=== PATIENT | male | born 1980 | race Caucasian/White ===

== ENCOUNTER 2022-06-04 19:31 | Inpatient (IN) | payer OTHER, SELFPAY ==
--- NOTE | ~2022-06-04 | XR_ITS ---
EXAMINATION: XR FOOT, RIGHT CLINICAL INFORMATION: Painful, swollen toe COMPARISON: None TECHNIQUE: AP, lateral, and oblique views of the right foot. FINDINGS: There is soft tissue swelling in the forefoot, especially around the third toe. There is an avulsion fracture involving the distal proximal phalanx which on the lateral view can be seen displaced significantly dorsally. There is cortical disruption reduction with indistinctness seen in the middle phalanx of the third digit proximally suggestive of osteomyelitis. In addition, in the first metatarsal head, there is a probable nondisplaced fracture present. XR/XR foot RT 2V IMPRESSION: Fractures involving the proximal phalanx of the third toe and the first metatarsal head with question of osteomyelitis the proximal middle phalanx. MRI may be useful for further evaluation. This critical result was discussed with Dr. Lowe at 9:30 PM on the day of the exam and it was ascertained that the content and urgency of the report was understood at the time of direct communication.
--- NOTE | ~2022-06-04 | MR_ITS ---
EXAMINATION: MR FOOT WITHOUT AND WITH CONTRAST, RIGHT CLINICAL INFORMATION: Concern for osteomyelitis. Fracture. COMPARISON: Right foot radiographs dated 06/04/2022. TECHNIQUE: Multisequence MR imaging of the right foot was obtained before and after the IV administration of 8.5 mL Gadavist contrast on a high-field strength scanner. FINDINGS: Attenuation and erosion to the proximal aspect of the third middle phalanx with diffusely increased T2 and decreased T1 signal. Attenuation and erosion at the distal aspect of the third proximal phalanx with increased T2 and decreased T1 signal. There is postcontrast enhancement within the marrow. Moderate proximal interphalangeal joint effusion with circumferential soft tissue edema. Findings are concerning for septic arthritis with osteomyelitis/erosions. Marrow edema with increased T2 and decreased T1 signal as well as postcontrast enhancement within the plantar aspect of the first metatarsal head. Findings could represent a stress reaction or osseous contusion. Osteomyelitis is thought less likely as there is no adjacent wound. The visualized flexor and extensor tendons are grossly intact. The Lisfranc ligament is intact. Dorsal subcutaneous edema. No dorsal subcutaneous abscess. MR/MR foot RT wo/w con IMPRESSION: Findings consistent with acute septic arthritis at the third proximal interphalangeal joint with osseous erosions and a moderate joint effusion. Circumferential soft tissue edema. Marrow edema within the first metatarsal head which could represent an osseous contusion or stress reaction. Osteomyelitis is thought less likely. Prominent dorsal subcutaneous edema.
[2022-06-04 19:37] VITALS: BP 160/95; PULSE 95; O2SAT 96
[2022-06-04 21:06] VITALS: BP 163/88; PULSE 84; RESP 18; TEMP 37.2; O2SAT 100; BMI 23.7
[2022-06-04 21:16] LABS: MANUAL DIFF FLAG NO
[2022-06-04 21:17] LABS: Basophils Absolute Auto 0.1 X10*3/uL (0.0-0.2); Eosinophils Absolute Auto 0.1 X10*3/uL (0.0-0.4); Eosinophils Percent Auto 1.5 % (0-4); Hematocrit 38.7 % (42.0-52.0); Hemoglobin 13.6 g/dl (14.0-18.0); Imm Gran Abs Auto 0.01 X10*3/uL (0.00-0.03); Imm Gran Pct Auto 0.1 % (0.0-0.4); Lymphocytes Absolute Auto 4.1 X10*3/uL (1.2-4.9); Lymphocytes Percent Auto 50.2 % (20-40); Mean Corpuscular HGB Conc 35.1 g/dl (31.0-36.0); Mean Corpuscular Hemoglobin 34.6 pg (27.0-33.0); Mean Corpuscular Volume 98.5 fL (80.0-98.0); Mean Platelet Volume 8.1 fL (9.4-12.4); Monocytes Absolute Auto 0.4 X10*3/uL (0.1-1.2); Monocytes Percent Auto 4.3 % (2-11); Neutrophils Absolute Auto 3.5 x10*3/uL (2.0-8.3); Neutrophils Percent Auto 42.9 % (45-73); Platelet Count 230 X10*3/uL (160-400); Red Blood Count 3.93 X10*6/uL (4.60-5.80); Red Cell Distribution Width 13.9 % (11.0-16.0); White Blood Count 8.1 X10*3/uL (4.8-10.8)
[2022-06-04 21:30] LABS: COVID-19 Test Negative (Negative); IDNOW Serial# 16C4AD1C
[2022-06-04 21:41] LABS: Alanine Aminotransferase 42 U/L (0-40); Albumin Level 4.3 g/dL (3.5-5.0); Alkaline Phosphatase 153 U/L (39-117); Anion Gap 16 (12-20); Aspartate Amino Transferase 55 U/L (5-37); Bilirubin Direct 0.3 mg/dL (0.0-0.5); Bilirubin Total 0.6 mg/dL (0.0-1.0); Blood Urea Nitrogen 7 mg/dL (9-16); Calcium 9.3 mg/dL (8.4-10.2); Carbon Dioxide 31 mmol/L (22-29); Chloride 104 mmol/L (96-108); Creatinine Clr Calc Pharmacy 152.1; Estimated Glomerular Filt Rate > 60; Ethanol 374 mg/dL; Glucose Random 71 mg/dL (60-115); Lipase 23 U/L (8-78); Sodium 148 mmol/L (135-145); Total Protein 7.5 g/dL (6.5-8.0)
--- NOTE | 2022-06-04 22:30 | ED.GENADULT ---
HPI - General Adult General Chief complaint: General Medical Stated complaint: ETOH Time Seen by Provider: 06/04/22 22:30 History of Present Illness HPI narrative: Patient complains of right foot pain for many weeks that has gotten worse over the past week and a half with a watery yellow discharge from the wound increased pain increased redness, denies fever denies chills denies vomiting Patient is a daily drinker, last drink was today, he has had withdrawal symptoms from alcohol in the past Related Data Allergies Allergy/AdvReac Type Severity Reaction Status Date / Time bee pollen [bee stings] Allergy Unknown Verified 06/04/22 19:39 Review of Systems Review of Systems: Positive for right foot pain and wound Negatives no fever no chills no dizziness no weakness no fainting no feeling faint no headache no neck pain no chest pain no abdominal pain no nausea vomiting or diarrhea no dysuria Yes all other systems are reviewed and are negative [facility] Past Medical History [facility] Narrative: Patient is regular daily user of EtOH Source: nursing notes reviewed Social History Social History Advance Directives: No Advance Directives Information Provided: No Physical Exam ED Vital Signs: Vital Signs - 24 hr 06/04/22 21:06 Temperature 98.9 F Pulse Rate 84 Respiratory Rate 18 Blood Pressure 163/88 H Pulse Oximetry 100 Oxygen Delivery Method Room Air BMI result Body Mass Index 23.7 General appearance no acute distress Head is normocephalic atraumatic Eyes pupils equal round reactive to light and extraocular motions are intact, anicteric no pallor Pharynx mucous membranes moist Neck is supple Chest clear to auscultation bilateral Heart no murmur auscultated Abdomen soft nontender Extremities the right foot at the distal dorsal foot at the base of the 3rd toe there is redness tenderness there is a wound on top of the for toe there is discharge coming out between the toes, skin is red and macerated Other extremities are normal Neuro motor is 5/5 x4, sensation intact symmetrical, cranial nerves 2-12 intact as tested Course Course Course Narrative: X-ray of the right foot showed cortical disruption in the mid phalanx of the right 3rd toe consistent with osteomyelitis Potassium was noted to be 3.0 EKG did not show signs of hypokalemia, normal sinus rhythm no acute ST changes, CA interval was normal, no acute T-wave changes, no U waves seen Case was discussed with attending ER Dr. Lowe and patient was admitted for osteo myelitis of the right foot after discussion with hospitalist He is started on IV antibiotics and admitted Medical Decision Making Lab Data Lab results reviewed: Yes I reviewed the patient's lab results. Result diagrams: 06/04/22 21:12 06/04/22 21:11 Labs: Lab Results 06/04/22 06/04/22 06/04/22 Range/Units 21:09 21:11 21:12 WBC 8.1 (4.8-10.8) X10*3/uL RBC 3.93 L (4.60-5.80) X10*6/uL Hgb 13.6 L (14.0-18.0) g/dl Hct 38.7 L (42.0-52.0) % MCV 98.5 H (80.0-98.0) fL MCH 34.6 H (27.0-33.0) pg MCHC 35.1 (31.0-36.0) g/dl RDW 13.9 (11.0-16.0) % Plt Count 230 (160-400) X10*3/uL MPV 8.1 L (9.4-12.4) fL Immature Gran % (Auto) 0.1 (0.0-0.4) % Neut % (Auto) 42.9 L (45-73) % Lymph % (Auto) 50.2 H (20-40) % [place] % (Auto) 4.3 (2-11) % Eos % (Auto) 1.5 (0-4) % Baso % (Auto) 1.0 (0-2) % Lymph # (Auto) 4.1 (1.2-4.9) X10*3/uL [place] # (Auto) 0.4 (0.1-1.2) X10*3/uL Eos # (Auto) 0.1 (0.0-0.4) X10*3/uL Baso # (Auto) 0.1 (0.0-0.2) X10*3/uL Abs Immat Gran (auto) 0.01 (0.00-0.03) X10*3/uL Absolute Neuts (auto) 3.5 (2.0-8.3) x10*3/uL Absolute Nucleated RBC 0.000 (0.0-0.012) X10*3/uL Nucleated RBC % (auto) 0.0 (0.0-0.2) /100WBC Sodium 148 H (135-145) mmol/L Potassium 3.0 L (3.3-5.1) mmol/L Chloride 104 (96-108) mmol/L Carbon Dioxide 31 H (22-29) mmol/L Anion Gap 16 (12-20) BUN 7 L (9-16) mg/dL Creatinine 0.70 (0.5-1.4) mg/dL Estim Creat Clear Calc 152.1 Estimated GFR > 60 Random Glucose 71 (60-115) mg/dL Calcium 9.3 (8.4-10.2) mg/dL Total Bilirubin 0.6 (0.0-1.0) mg/dL Direct Bilirubin 0.3 (0.0-0.5) mg/dL AST 55 H (5-37) U/L ALT 42 H (0-40) U/L Alkaline Phosphatase 153 H (39-117) U/L Total Protein 7.5 (6.5-8.0) g/dL Albumin 4.3 (3.5-5.0) g/dL Lipase 23 (8-78) U/L Ethyl Alcohol 374 H* mg/dL COVID-19 ([facility]) Negative (Negative) COVID-19 Clin Com See Note Discharge Plan Discharge Clinical Impression: Osteomyelitis, EtOH dependence Patient Disposition: Admitted As Inpatient
--- NOTE | 2022-06-04 22:32 | ECG_ITS ---
Test Reason : HYPOKALEMIA Blood Pressure : / mmHG Vent. Rate : 070 BPM Atrial Rate : 070 BPM P-R Int : 170 ms QRS Dur : 106 ms QT Int : 404 ms P-R-T Axes : 044 058 060 degrees QTc Int : 436 ms Normal sinus rhythm ST elevation in Inferior leads Abnormal ECG No previous ECGs available Referred By: Wade Paniagua Electronically Signed By:LATRICE ULLOA
--- NOTE | 2022-06-04 23:14 | P.HPHOSP_ITS ---
History of Present Illness Date of Service: 06/04/22 Chief Complaint: foot pain 42-year-old male with no significant past medical history except for alcohol abuse presented to the hospital today with a chief complaint of right foot pain redness and swelling. Patient reports that about a month ago had a plate fallen is the toes; since then he has been having pain but for the past 1 week he has been having worse ermelinda pain in his the toes on the right foot. Also had an ulcer on his 3rd toe. Reports serosanguineous discharge. Denies any fevers. Mentions that the pain is so bad that he could not even ambulate hence decided to come to the ER for further evaluation. Denies any illicit drug use. Reports he drinks alcohol regularly. Denies any fever chills cough or sputum production. Denies any GI symptoms. For Review of all other systems is negative except mentioned above ER course: Per ER team patient noted to have swelling of his right 2nd 3rd and 4th fingers along with erythema and tenderness. Range of motion of the toes limited secondary to the pain. Noted ulcer on the 3rd toe. X-ray showed 3rd and 4th toe metatarsal fracture/osteomyelitis. Given antibiotics; admitted for further management [facility] Medical History (Updated 06/05/22 @ 13:12 by Esha Fox MD) Foot ulcer Pertinent family history: Parents Social History Household Members: Spouse Housing: House Do you presently have visiting nurse or other home services: No Patient Tobacco Use Status: Current someday Tobacco user Tobacco use type: Cigarette Cigarette Packs Per Day: 1 Cigarettes Per Day: 20.0 Years Smoked: 30 Second Hand Smoke Exposure: Yes Substance Use Type: Marijuana service: No Current occupational status: unemployed Meds Allergies Allergy/AdvReac Type Severity Reaction Status Date / Time bee pollen [bee stings] Allergy Unknown Verified 06/04/22 19:39 Active Medications: Current Medications Vancomycin HCl 1,000 mg/ (Sodium Chloride) 270 mls @ 270 mls/hr IV ONCE ONE Stop: 06/05/22 00:00 Piperacillin Sod/Tazobactam (Sod 3.375 gm/ Sodium Chloride) 50 mls @ 100 mls/hr IV ONCE ONE Stop: 06/04/22 23:31 Vancomycin HCl 1,000 mg/ (Sodium Chloride) 270 mls @ 270 mls/hr IV Q12H [facility] Piperacillin Sod/Tazobactam (Sod 3.375 gm/ Sodium Chloride) 50 mls @ 100 mls/hr IV Q6H [facility] Pharmacy Consult (Consult Rx Vancomycin Dosing) 1 each MISCELLANE DAILY PRN PRN Reason: Consult order Pharmacy Consult (Consult Rx Vancomycin Dosing) 1 each MISCELLANE DAILY PRN PRN Reason: Consult order Home Medications Medication Instructions Recorded Confirmed Last Taken Type ibuprofen 200 mg tablet 400 mg PO Q6H PRN Pain 06/05/22 06/05/22 Unknown History Physical Exam Vital Signs and Narrative: Vital Signs: Last Vital Signs Temp 98.9 F 06/04/22 21:06 Pulse 84 06/04/22 21:06 Resp 18 06/04/22 21:06 BP 163/88 H 06/04/22 21:06 Pulse Ox 100 06/04/22 21:06 O2 Del Method 06/04/22 21:06 BMI result Body Mass Index 23.7 Gen: Appears be in no acute distress HEENT: NCAT, Moist mucosa. Pulmonary: Vesicular breath sounds, fair air entry CVS: Normal S1-S2 Abdomen: BS+, Soft, Nontender Extremities: Warm well perfused; right foot 2nd 3rd and 4th toes are tender, range of motion limited, erythema noted around the toes, ulcer noted on the 3rd toe dorsum. Neuro: Alert and awake. Results Labs CBC and Chem 7: 06/05/22 03:24 06/06/22 09:06 Labs: Laboratory Results - last 24 hr 06/04/22 06/04/22 06/04/22 21:09 21:11 21:12 MCV 98.5 H MCH 34.6 H MCHC 35.1 RDW 13.9 Plt Count 230 MPV 8.1 L Immature Gran % (Auto) 0.1 Neut % (Auto) 42.9 L Lymph % (Auto) 50.2 H [place] % (Auto) 4.3 Eos % (Auto) 1.5 Baso % (Auto) 1.0 Lymph # (Auto) 4.1 [place] # (Auto) 0.4 Eos # (Auto) 0.1 Baso # (Auto) 0.1 Abs Immat Gran (auto) 0.01 Absolute Neuts (auto) 3.5 Absolute Nucleated RBC 0.000 Nucleated RBC % (auto) 0.0 Anion Gap 16 Estim Creat Clear Calc 152.1 Estimated GFR > 60 Random Glucose 71 Calcium 9.3 Total Bilirubin 0.6 Direct Bilirubin 0.3 AST 55 H ALT 42 H Alkaline Phosphatase 153 H Total Protein 7.5 Albumin 4.3 Lipase 23 Ethyl Alcohol 374 H* COVID-19 ([facility]) Negative COVID-19 Clin Com See Note Imaging Radiologist's Impressions: Impressions Foot X-Ray 06/04/22 21:18 IMPRESSION: Fractures involving the proximal phalanx of the third toe and the first metatarsal head with question of osteomyelitis the proximal middle phalanx. MRI may be useful for further evaluation. This critical result was discussed with Dr. Lowe at 9:30 PM on the day of the exam and it was ascertained that the content and urgency of the report was understood at the time of direct communication. Assessment and Plan (1) Osteomyelitis: Status: Acute Plan 42-year-old male with no significant past medical history except for alcohol abuse presented to the hospital today with a chief complaint of right foot pain redness and swelling. Noted to have osteomyelitis/metatarsal fracture. Admitted for further management. Right 1st metatarsal osteomyelitis/right 3rd toe and 1st metatarsal head fracture: Pain control Continue IV vancomycin and Zosyn Id consult and vascular surgery consult for further recommendations Fall precautions PT/OT eventually Alcohol abuse: Monitor on CIWA protocol with Ativan. Thiamine folate and multivitamins. DVT prophylaxis: Lovenox Code status: Full code Quality Stroke Does the patient have a stroke diagnosis?: No VTE Prior VTE?: No VTE Risk Level:: Medical - moderate - high VTE Device Contraindication: Treatment Not Indicated VTE Drug Contraindication: N/A - Med Ordered
[2022-06-04] MEDS: Piperacillin Sodium/Tazobactam 3.375 GM in 0.9 % Sodium Chloride 50 ML IV (23:32)
[2022-06-04 23:46] LABS: Magnesium 1.8 mg/dL (1.6-2.6)
[2022-06-05] MEDS: LORazepam 1 MG TABLET PO ×4 (00:26→21:06)
[2022-06-05] MEDS: 0.9 % Sodium Chloride Flush 3 ML SYRINGE IVFLUSH ×3 (00:28→21:07)
[2022-06-05] MEDS: Acetaminophen 325 MG TABLET 650 MG PO (00:28)
[2022-06-05] MEDS: Enoxaparin Sodium 40 MG/0.4 ML SYRINGE SUBCUT (00:28)
[2022-06-05] MEDS: Melatonin 3 MG TABLET 6 MG PO ×2 (00:29→21:03)
[2022-06-05] MEDS: HYDROmorphone HCl 1 MG/ML SYRINGE 0.6 MG IVPUSH ×4 (00:38→21:02)
[2022-06-05 00:44] VITALS: BP 148/78; PULSE 68; RESP 18; TEMP 36.6; O2SAT 96
[2022-06-05 01:07] LABS: Lactic Acid 2.2 mmol/L (0.5-2.0)
[2022-06-05] MEDS: 0.9 % Sodium Chloride 1,000 ML 100 ML IVCONT ×2 (02:22→15:35)
[2022-06-05 02:43] LABS: Reflex Lactate? Lactic Acid Added
[2022-06-05 03:38] LABS: MANUAL DIFF FLAG NO
[2022-06-05 03:39] LABS: Basophils Absolute Auto 0.1 X10*3/uL (0.0-0.2); Eosinophils Absolute Auto 0.1 X10*3/uL (0.0-0.4); Eosinophils Percent Auto 2.5 % (0-4); Hematocrit 34.4 % (42.0-52.0); Hemoglobin 12.2 g/dl (14.0-18.0); Imm Gran Abs Auto 0.02 X10*3/uL (0.00-0.03); Imm Gran Pct Auto 0.4 % (0.0-0.4); Lymphocytes Absolute Auto 2.5 X10*3/uL (1.2-4.9); Lymphocytes Percent Auto 50.1 % (20-40); Mean Corpuscular HGB Conc 35.5 g/dl (31.0-36.0); Mean Corpuscular Volume 98.6 fL (80.0-98.0); Mean Platelet Volume 8.2 fL (9.4-12.4); Monocytes Absolute Auto 0.4 X10*3/uL (0.1-1.2); Monocytes Percent Auto 8.8 % (2-11); Neutrophils Absolute Auto 1.8 x10*3/uL (2.0-8.3); Neutrophils Percent Auto 37.2 % (45-73); Platelet Count 195 X10*3/uL (160-400); Red Blood Count 3.49 X10*6/uL (4.60-5.80); White Blood Count 4.9 X10*3/uL (4.8-10.8)
[2022-06-05 03:49] LABS: ~Lactic Acid-LAB USE ONLY 1.7 mmol/L (0.5-2.0)
[2022-06-05 03:57] LABS: Anion Gap 15 (12-20); Blood Urea Nitrogen 8 mg/dL (9-16); Calcium 8.2 mg/dL (8.4-10.2); Carbon Dioxide 28 mmol/L (22-29); Chloride 105 mmol/L (96-108); Creatinine Clr Calc Pharmacy 147.9; Estimated Glomerular Filt Rate > 60; Glucose Random 111 mg/dL (60-115); Potassium 2.8 mmol/L (3.3-5.1); Sodium 145 mmol/L (135-145)
[2022-06-05 04:40] VITALS: BP 129/79; PULSE 61; RESP 16; TEMP 36.4; O2SAT 97
--- NOTE | 2022-06-05 06:16 | PHA.PROG ---
Admission Date/Time: June 04, 2022 23:12 Indication: SKIN/SKIN STRUCTURE Weight in k.647 kg Adjusted body weight in K.599 [place] body weight in Kg: Obesity Dosing Indication % IBW: Serum Creatinine - Last 168 Hours 06/04/22 06/05/22 21:11 03:24 Creatinine 0.70 0.72 Estimated CrCl and GFR - Last 168 Hours 06/04/22 06/05/22 21:11 03:24 Estim Creat Clear Calc 152.1 147.9 Estimated GFR > 60 > 60 Vancomycin Loading Dose: 2000 MG Current Vancomycin Dosing Regimen: 1500 MG Q12H Vancomycin Monitoring using AUC goal of 400 - 600 range with trough as surrogate marker: AUC 555; TROUGH 16 Date and Time for next Vancomycin Level to be drawn: 06/06 @0900 Pharmacist Comments on Vancomycin Plan: Possible osteo, so more aggressive Vancomycin dosing will take advantage of [employer] as a clinical decision support tool that uses Bayesian modeling to calculate individual patient's pharmacokinetic parameters and forecast the patient's drug concentration time course with the target goal AUC 24 range of 400 - 600 mg/L/hr.
[2022-06-05] MEDS: Piperacillin Sodium/Tazobactam 3.375 GM in 0.9 % Sodium Chloride 50 ML IV ×3 (06:17→17:42)
[2022-06-05 08:00] VITALS: BP 133/72; PULSE 63; RESP 16; TEMP 36.6; O2SAT 94
[2022-06-05] MEDS: Multivitamin TABLET 1 TAB PO (08:18)
[2022-06-05] MEDS: Folic Acid 1 MG TABLET PO (08:19)
[2022-06-05] MEDS: Thiamine HCL 100 MG TABLET PO (08:19)
[2022-06-05] MEDS: Famotidine 20 MG TABLET PO ×2 (08:19→21:03)
--- NOTE | 2022-06-05 08:30 | PHA.MEDREC ---
Pharmacy Consult ? Medication Reconciliation Pharmacy has completed the medication reconciliation. Patient reports he was previously on trazodone for sleep but has not been the the doctors for a new prescription. Magdalena Belle, [facility]
--- NOTE | 2022-06-05 09:36 | MHC.CM.PN ---
PATIENT LIVES WITH HIS HE IS WILLING TO ASSIGN HCP AGENT AND CASE MANAGEMENT WILL ASSIST WITH COMPLETION DURING THIS STAY COVID VACCINATED X 2 WITH PFIZER SERIES. NO HISTORY OF COVID-19 NO DME OR VNA SERVICES HE DOES NOT YET HAVE A PCP BUT IS IN THE PROCESS OF SECURING ONE AT [facility] IN [place]. IF IV ABX ARE NEEDED AT TIME OF DISCHARGE, PATIENT IS AGREEABLE TO [facility] REFERRAL.
--- NOTE | 2022-06-05 09:45 | P.PNIM_ITS ---
Subjective Subjective Date of Service: 06/05/22 Interval History: f/u on osteomylitis of the left foot Interval history: pain in the foot Review of Systems no fever, pain in the foot Physical Exam Vital Signs: Vital Signs: Last Vital Signs Temp 97.8 F 06/05/22 08:00 Pulse 63 06/05/22 08:00 Resp 16 06/05/22 08:00 BP 133/72 06/05/22 08:00 Pulse Ox 94 06/05/22 08:00 O2 Del Method 06/05/22 08:00 BMI result Body Mass Index 23.7 General: AO X 3, no acute distress Resp: CTA bilateral CVS: S1,S2,RRR GI: +BS, NT, no distention Skin: No rash, ulcre of left second digit Neuro: motor grossly intact Psych: appropriate affect Objective Data Active Medications Acetaminophen (Acetaminophen 325 Mg Tablet) 650 mg PO Q6H PRN PRN Reason: Pain, Mild (Pain Scale 1-3) Last Admin: 06/05/22 00:28 Dose: 650 mg Documented By: SERA Enoxaparin Sodium (Enoxaparin Sodium 40 Mg/0.4 Ml Syringe) 40 mg SUBCUT Q24H [facility] Last Admin: 06/05/22 00:28 Dose: 40 mg Documented By: SERA Famotidine (Famotidine 20 Mg Tablet) 20 mg PO BID [facility] Last Admin: 06/05/22 08:19 Dose: 20 mg Documented By: SIM Folic Acid (Folic Acid 1 Mg Tablet) 1 mg PO DAILY NEERU Stop: 06/08/22 08:59 Last Admin: 06/05/22 08:19 Dose: 1 mg Documented By: SIM Hydromorphone HCl (Hydromorphone Hcl 1 Mg/Ml Syringe) 0.6 mg IVPUSH Q4H PRN; Protocol PRN Reason: Breakthrough Pain Last Admin: 06/05/22 06:38 Dose: 0.6 mg Documented By: JESSI Piperacillin Sod/Tazobactam (Sod 3.375 gm/ Sodium Chloride) 50 mls @ 100 mls/hr IV Q6H [facility] Last Infusion: 06/05/22 06:58 Dose: 0 mls/hr Documented By: JESSI Sodium Chloride (Ns) 1,000 mls @ 100 mls/hr IVCONT .Q10H [facility] Last Admin: 06/05/22 02:22 Dose: 100 mls/hr Documented By: SERA Vancomycin HCl 1,500 mg/ (Sodium Chloride) 500 mls @ 333.333 mls/hr IV Q12H [facility] Lorazepam (Lorazepam 1 Mg Tablet) 1 mg PO Q4H PRN PRN Reason: Breakthrough alcohol withdrawa Stop: 06/08/22 23:13 Melatonin (Melatonin 3 Mg Tablet) 6 mg PO BEDTIME PRN PRN Reason: Insomnia Last Admin: 06/05/22 00:29 Dose: 6 mg Documented By: SERA Multivitamins/Vitamin C (Multivitamin Tablet) 1 tab PO DAILY [facility] Stop: 06/08/22 08:59 Last Admin: 06/05/22 08:18 Dose: 1 tab Documented By: SIM Pharmacy Consult (Consult Rx Vancomycin Dosing) 1 each MISCELLANE DAILY PRN PRN Reason: Consult order Senna (Sennosides 8.6 Mg Tablet) 17.2 mg PO BEDTIME PRN PRN Reason: Constipation Sodium Chloride (0.9 % Sodium Chloride Flush 3 Ml Syringe) 3 ml IVFLUSH QSHIFT [facility] Last Admin: 06/05/22 08:19 Dose: 3 ml Documented By: SIM Thiamine HCl (Thiamine Hcl 100 Mg Tablet) 100 mg PO DAILY [facility] Stop: 06/08/22 08:59 Last Admin: 06/05/22 08:19 Dose: 100 mg Documented By: SIM Labs CBC & Chem 7: 06/05/22 03:24 06/05/22 03:24 Labs: Laboratory Results - last 24 hr 06/04/22 06/04/22 06/04/22 21:09 21:11 21:12 MCV 98.5 H MCH 34.6 H MCHC 35.1 RDW 13.9 Plt Count 230 MPV 8.1 L Immature Gran % (Auto) 0.1 Neut % (Auto) 42.9 L Lymph % (Auto) 50.2 H [place] % (Auto) 4.3 Eos % (Auto) 1.5 Baso % (Auto) 1.0 Lymph # (Auto) 4.1 [place] # (Auto) 0.4 Eos # (Auto) 0.1 Baso # (Auto) 0.1 Abs Immat Gran (auto) 0.01 Absolute Neuts (auto) 3.5 Absolute Nucleated RBC 0.000 Nucleated RBC % (auto) 0.0 Anion Gap 16 Estim Creat Clear Calc 152.1 Estimated GFR > 60 Random Glucose 71 Lactic Acid Lactic Acid F/U @ 2Hr Calcium 9.3 Magnesium 1.8 Total Bilirubin 0.6 Direct Bilirubin 0.3 AST 55 H ALT 42 H Alkaline Phosphatase 153 H Total Protein 7.5 Albumin 4.3 Lipase 23 Ethyl Alcohol 374 H* COVID-19 ([facility]) Negative COVID-19 Clin Com See Note 06/05/22 06/05/22 06/05/22 00:31 03:24 03:24 MCV 98.6 H MCH 35.0 H MCHC 35.5 RDW 14.0 Plt Count 195 MPV 8.2 L Immature Gran % (Auto) 0.4 Neut % (Auto) 37.2 L Lymph % (Auto) 50.1 H [place] % (Auto) 8.8 Eos % (Auto) 2.5 Baso % (Auto) 1.0 Lymph # (Auto) 2.5 [place] # (Auto) 0.4 Eos # (Auto) 0.1 Baso # (Auto) 0.1 Abs Immat Gran (auto) 0.02 Absolute Neuts (auto) 1.8 L Absolute Nucleated RBC 0.000 Nucleated RBC % (auto) 0.0 Anion Gap 15 Estim Creat Clear Calc 147.9 Estimated GFR > 60 Random Glucose 111 D Lactic Acid 2.2 H* Lactic Acid F/U @ 2Hr Calcium 8.2 L D Magnesium Total Bilirubin Direct Bilirubin AST ALT Alkaline Phosphatase Total Protein Albumin Lipase Ethyl Alcohol COVID-19 ([facility]) COVID-19 Clin Com 06/05/22 03:24 MCV MCH MCHC RDW Plt Count MPV Immature Gran % (Auto) Neut % (Auto) Lymph % (Auto) [place] % (Auto) Eos % (Auto) Baso % (Auto) Lymph # (Auto) [place] # (Auto) Eos # (Auto) Baso # (Auto) Abs Immat Gran (auto) Absolute Neuts (auto) Absolute Nucleated RBC Nucleated RBC % (auto) Anion Gap Estim Creat Clear Calc Estimated GFR Random Glucose Lactic Acid Lactic Acid F/U @ 2Hr 1.7 Calcium Magnesium Total Bilirubin Direct Bilirubin AST ALT Alkaline Phosphatase Total Protein Albumin Lipase Ethyl Alcohol COVID-19 ([facility]) COVID-19 Clin Com Assessment and Plan (1) EtOH dependence: Status: Acute (2) Osteomyelitis: Status: Acute Plan 42-year-old male with no significant past medical history except for alcohol abuse presented to the hospital today with a chief complaint of right foot pain redness and swelling.? Noted to have osteomyelitis/metatarsal fracture.? Admitted for further management.? Right 1st metatarsal osteomyelitis/right 3rd toe and 1st metatarsal head fracture: Pain control Continue IV vancomycin and Zosyn ID and vascular surgery consults for further recommendations Fall precautions PT/OT eventually Alcohol abuse:? Monitor on CIWA protocol with Ativan.? Thiamine folate and multivitamins.? DVT prophylaxis:? Lovenox Code status:? Full code Need for inaptient: IV Abx for acute osteomyltisis Quality Stroke Does the patient have a stroke diagnosis?: No VTE Prior VTE?: No VTE Risk Level:: Medical - moderate - high VTE Device Contraindication: Treatment Not Indicated VTE Drug Contraindication: N/A - Med Ordered
[2022-06-05] MEDS: Nicotine 14 MG PATCH.TD24 TRANSDERMA (10:06)
[2022-06-05] MEDS: Sennosides 8.6 MG TABLET 17.2 MG PO (10:06)
[2022-06-05] MEDS: vancomycin HCL 1,500 MG in 0.9 % Sodium Chloride 500 ML 333.33 MG IV ×2 (10:07→22:43)
--- NOTE | 2022-06-05 10:28 | P.CDIC_ITS ---
CDI Concurrent Query Documentation Clarification: PHYSICIAN'S DOCUMENTATION REQUEST Date of Query: 06/05/22 1038 Patient Name: Sudeep Albrecht Admit Date: 06/04/22 Dear Doctor, A review of the medical record indicates additional documentation may be needed. Please review below and update the documentation accordingly. Clinical Indicators: Is there a diagnosis that correlates to these lab findings below: Risk Factors/Clinical Indicators/Treatments Labs: sodium 148 H IV fluids Based on the above, could you clarify in the Progress Notes the appropriate diagnosis, if significant, that supports the above abnormalities and additional evaluation, monitoring, and/or treatment rendered: * Hypernatremia or other etiology of lab findings * Labs indicate a diagnosis of (please specify) * Other (please specify) * Unable to determine Use of terms such as suspected, likely, concern for, or probable (associated with a specific diagnosis that is being evaluated, monitored, or treated as if it exists) are acceptable and can be coded in the inpatient setting, when documented at the time of discharge. Thank you, Damaris Villalobos [facility], [facility] Extension: [phone] Please use your independent medical judgment in providing your response. THIS QUERY IS PART OF THE PERMANENT MEDICAL RECORD Provider Response: Other (Hypernatremia) Other Diagnosis: Hypernatremia
--- NOTE | 2022-06-05 10:41 | P.CDIC_ITS ---
CDI Concurrent Query Documentation Clarification: PHYSICIAN'S DOCUMENTATION REQUEST Date of Query: 06/05/22 1044 Patient Name: Sudeep Albrecht Admit Date: 06/04/22 Dear Doctor, A review of the medical record indicates additional documentation may be needed. Please review below and update the documentation accordingly. Clinical Indicators: Risk Factors/Clinical Indicators/Treatments Labs: potassium 3.0 L 2.8 L Please clarify the following: Hypokalemia or other etiology of lab findings above: * [Diagnosis] was present on admission and is now resolved * [Diagnosis] was present on admission and is still being monitored, evaluated, or treated * [Diagnosis] was ruled out * [Diagnosis] is still a likely, suspected, probable diagnosis * Other (please specify) * Unable to determine Use of terms such as suspected, likely, concern for, or probable (associated with a specific diagnosis that is being evaluated, monitored, or treated as if it exists) are acceptable and can be coded in the inpatient setting, when documented at the time of discharge. Thank you, Damaris Villalobos [facility], [facility] Extension: [phone] Please use your independent medical judgment in providing your response. THIS QUERY IS PART OF THE PERMANENT MEDICAL RECORD Provider Response: Other (Hypokalemia) Other Diagnosis: Hypokalemia
[2022-06-05 11:44] VITALS: BP 169/83; PULSE 72; RESP 19; TEMP 36.9; O2SAT 97
--- NOTE | 2022-06-05 13:05 | W.PM.IDCN ---
History of Present Illness Data of Consult Service Date: 06/05/22 Requesting physician: Collins Zacarias Primary Care Provider: Unknown Physician HPI Reason for consult: foot redness He presents with right third toe pain and swelling and ulcer less than 1 cm dorsal surface toe. He has had symptoms since dropped plate on foot three weeks ago. He drinks alcohol daily and noticed some numbness tops of toes over last few months. He denies diabetes. XRay shows fractures proximal phalanx third toe and first MT head ?osteomyelitis. He has no fever or chills or cellulitis. Review of Systems Review of Systems: Yes all other systems are reviewed and are negative Neurologic: Reports paresthesias and Reports tremor(s) PMFSH Past Medical History Medical History (Updated 06/05/22 @ 13:12 by Esha Fox MD) Foot ulcer Family History Family history: reviewed and not pertinent Social History Social History Household Members: Spouse Housing: House Do you presently have visiting nurse or other home services: No Patient Tobacco Use Status: Current someday Tobacco user Tobacco use type: Cigarette Cigarette Packs Per Day: 1 Cigarettes Per Day: 20.0 Years Smoked: 30 Smoked in Last 30 Days: Yes Patient Interested in Nicotine Replacement: Yes Patient Given Instructions on How to Stop Smoking: No Second Hand Smoke Exposure: Yes Use of substances other than those prescribed or required for medical reasons: Yes Substance Use Type: Marijuana Substance Use Frequency: Occasionally Currently Displaying Signs/Symptoms of Drug Intoxication Withdrawal: No Have you been hit, kicked, punched, or otherwise hurt by someone within the past year? If so, by whom?: No Do you feel safe in your current relationship?: Yes Is there a partner from a previous relationship who is making you feel unsafe now?: No Are you made to feel afraid or neglected: No Advance Directives: No Advance Directives Information Provided: No Do you have thoughts of harming others: None Do you have a plan to hurt others: No Plan Nutrition Risks: No Nutritional Risk Poor oral hygiene: No service: No Current occupational status: unemployed Meds Allergies Allergy/AdvReac Type Severity Reaction Status Date / Time bee pollen [bee stings] Allergy Unknown Verified 06/04/22 19:39 Active Medications: Current Medications Acetaminophen (Acetaminophen 325 Mg Tablet) 650 mg PO Q6H PRN PRN Reason: Pain, Mild (Pain Scale 1-3) Last Admin: 06/05/22 00:28 Dose: 650 mg Enoxaparin Sodium (Enoxaparin Sodium 40 Mg/0.4 Ml Syringe) 40 mg SUBCUT Q24H [facility] Last Admin: 06/05/22 00:28 Dose: 40 mg Famotidine (Famotidine 20 Mg Tablet) 20 mg PO BID [facility] Last Admin: 06/05/22 08:19 Dose: 20 mg Folic Acid (Folic Acid 1 Mg Tablet) 1 mg PO DAILY [facility] Stop: 06/08/22 08:59 Last Admin: 06/05/22 08:19 Dose: 1 mg Hydromorphone HCl (Hydromorphone Hcl 1 Mg/Ml Syringe) 0.6 mg IVPUSH Q4H PRN; Protocol PRN Reason: Breakthrough Pain Last Admin: 06/05/22 11:59 Dose: 0.6 mg Piperacillin Sod/Tazobactam (Sod 3.375 gm/ Sodium Chloride) 50 mls @ 100 mls/hr IV Q6H [facility] Last Infusion: 06/05/22 12:39 Dose: Infused Sodium Chloride (Ns) 1,000 mls @ 100 mls/hr IVCONT .Q10H [facility] Last Admin: 06/05/22 02:22 Dose: 100 mls/hr Vancomycin HCl 1,500 mg/ (Sodium Chloride) 500 mls @ 333.333 mls/hr IV Q12H [facility] Last Infusion: 06/05/22 12:39 Dose: Infused Lorazepam (Lorazepam 1 Mg Tablet) 1 mg PO Q4H PRN PRN Reason: Breakthrough alcohol withdrawa Stop: 06/08/22 23:13 Last Admin: 06/05/22 12:01 Dose: 1 mg Melatonin (Melatonin 3 Mg Tablet) 6 mg PO BEDTIME PRN PRN Reason: Insomnia Last Admin: 06/05/22 00:29 Dose: 6 mg Multivitamins/Vitamin C (Multivitamin Tablet) 1 tab PO DAILY [facility] Stop: 06/08/22 08:59 Last Admin: 06/05/22 08:18 Dose: 1 tab Pharmacy Consult (Consult Rx Vancomycin Dosing) 1 each MISCELLANE DAILY PRN PRN Reason: Consult order Senna (Sennosides 8.6 Mg Tablet) 17.2 mg PO BEDTIME PRN PRN Reason: Constipation Last Admin: 06/05/22 10:06 Dose: 17.2 mg Sodium Chloride (0.9 % Sodium Chloride Flush 3 Ml Syringe) 3 ml IVFLUSH QSHIFT [facility] Last Admin: 06/05/22 08:19 Dose: 3 ml Thiamine HCl (Thiamine Hcl 100 Mg Tablet) 100 mg PO DAILY [facility] Stop: 06/08/22 08:59 Last Admin: 06/05/22 08:19 Dose: 100 mg Home Medications Medication Instructions Recorded Confirmed Last Taken Type ibuprofen 200 mg tablet 400 mg PO Q6H PRN Pain 06/05/22 06/05/22 Unknown History Physical Exam Vital Signs: Vital Signs: Last Vital Signs Temp 98.4 F 06/05/22 11:44 Pulse 72 06/05/22 11:44 Resp 19 06/05/22 11:44 BP 169/83 H 06/05/22 11:44 Pulse Ox 97 06/05/22 11:44 O2 Del Method 06/05/22 11:44 BMI result Body Mass Index 23.7 Const: General: cooperative HEENT: Head: Yes normal to inspection Face and sinus: Yes normal facial exam Mouth: Normal oral and palatal mucosa present Teeth and gingiva: dentition normal Eyes: General: appearance normal, both eyes and all related structures Pupils: Equal, round and reactive pupils present Resp: Effort & Inspection: normal respiratory effort Cardio: Rate: regular rate Rhythm: regular rhythm GI: Palpation (GI): Soft to palpation and nontender : General: Yes no CVA tenderness Back/Spine/Pelvis: Back: no CVA tenderness Skin: General skin exam: no rashes or lesions noted Neuro: General: moves all extremities Cranial nerves: Yes Equal, round and reactive pupils present Extrem: Other: mild neuropathy bilateral lower extremities open area less than 1 cm prox phalanx 3rd toe,no probe to bone seen Psych: Appearance: grossly normal Results Labs CBC & Chem 7: 06/05/22 03:24 06/05/22 03:24 Labs: Short CBC 06/04/22 06/05/22 Range/Units 21:12 03:24 WBC 8.1 4.9 (4.8-10.8) X10*3/uL Hgb 13.6 L 12.2 L (14.0-18.0) g/dl Hct 38.7 L 34.4 L (42.0-52.0) % Plt Count 230 195 (160-400) X10*3/uL BMP 06/04/22 06/05/22 21:11 03:24 Sodium 148 H 145 Potassium 3.0 L 2.8 L Chloride 104 105 Carbon Dioxide 31 H 28 BUN 7 L 8 L Creatinine 0.70 0.72 Calcium 9.3 8.2 L D Liver Function 06/04/22 Range/Units 21:11 Total Bilirubin 0.6 (0.0-1.0) mg/dL Direct Bilirubin 0.3 (0.0-0.5) mg/dL AST 55 H (5-37) U/L ALT 42 H (0-40) U/L Alkaline Phosphatase 153 H (39-117) U/L Albumin 4.3 (3.5-5.0) g/dL Assessment and Plan (1) Foot ulcer: Status: Acute He has area foot may be just fracture or may have osteomyelitis now or may be difficult to tell. He has nonhealing wound but has no fever or spreading cellulitis and no diabetes. He doesnt have elevated WBC (2) EtOH dependence: Status: Acute Plan Would check ESR and CRP Would check MRI of foot If above are not suggestive of osteomyelitis would stop antibiotics and have him follow with Orthopedics or Wound Clinic. If suggestive of osteomyelitis would continue six weeks IV antibiotics possible Ertapenem.
--- NOTE | 2022-06-05 13:43 | PM.CNGS ---
History of Present Illness Consult details Consult date: 06/05/22 Reason for consult: wound care Narrative: 42-year-old gentleman who has a history alcohol dependence and smokes approximately 1 pack per day had a plate fall on his right foot. He developed a ulcer on the dorsum of the 3rd toe which was quite painful for him. He presented to the hospital. After x-ray he was subsequently admitted for evaluation and treatment of a fracture and osteomyelitis. He is currently being treated with IV antibiotics inclusive of vanco and Zosyn. Review of Systems Review of Systems: Yes all other systems are reviewed and are negative Constitutional: Constitutional: Reports no additional constitutional complaints ENT: Reports Normal hearing present Cardiovascular: Cardiovascular: Denies chest pain, Denies chest pain at rest, Denies chest pain with activity and Denies pedal edema Respiratory: Respiratory: Denies cough Gastrointestinal: Gastrointestinal: Denies abdominal pain Musculoskeletal: Musculoskeletal: Denies abnormal gait, Denies muscle cramps and Denies radiating pain into limb Integumentary/Breasts: Skin/Breast: Denies skin ulcer and Denies wounds Neurologic: Reports Normal hearing present and Denies abnormal gait Psychiatric: Psychiatric: Reports no additional psychiatric complaints [facility] [place] Past Medical History Medical History (Updated 06/05/22 @ 13:12 by Esha Fox MD) Foot ulcer Family History Family history: reviewed and not pertinent Social History Social History Household Members: Spouse Housing: House Do you presently have visiting nurse or other home services: No Patient Tobacco Use Status: Current someday Tobacco user Tobacco use type: Cigarette Cigarette Packs Per Day: 1 Cigarettes Per Day: 20.0 Years Smoked: 30 Smoked in Last 30 Days: Yes Patient Interested in Nicotine Replacement: Yes Patient Given Instructions on How to Stop Smoking: No Second Hand Smoke Exposure: Yes Use of substances other than those prescribed or required for medical reasons: Yes Substance Use Type: Marijuana Substance Use Frequency: Occasionally Currently Displaying Signs/Symptoms of Drug Intoxication Withdrawal: No Have you been hit, kicked, punched, or otherwise hurt by someone within the past year? If so, by whom?: No Do you feel safe in your current relationship?: Yes Is there a partner from a previous relationship who is making you feel unsafe now?: No Are you made to feel afraid or neglected: No Advance Directives: No Advance Directives Information Provided: No Do you have thoughts of harming others: None Do you have a plan to hurt others: No Plan Nutrition Risks: No Nutritional Risk Poor oral hygiene: No service: No Current occupational status: unemployed Meds Allergies Allergy/AdvReac Type Severity Reaction Status Date / Time bee pollen [bee stings] Allergy Unknown Verified 06/04/22 19:39 Active Medications: Current Medications Acetaminophen (Acetaminophen 325 Mg Tablet) 650 mg PO Q6H PRN PRN Reason: Pain, Mild (Pain Scale 1-3) Last Admin: 06/05/22 00:28 Dose: 650 mg Enoxaparin Sodium (Enoxaparin Sodium 40 Mg/0.4 Ml Syringe) 40 mg SUBCUT Q24H [facility] Last Admin: 06/05/22 00:28 Dose: 40 mg Famotidine (Famotidine 20 Mg Tablet) 20 mg PO BID [facility] Last Admin: 06/05/22 08:19 Dose: 20 mg Folic Acid (Folic Acid 1 Mg Tablet) 1 mg PO DAILY [facility] Stop: 06/08/22 08:59 Last Admin: 06/05/22 08:19 Dose: 1 mg Hydromorphone HCl (Hydromorphone Hcl 1 Mg/Ml Syringe) 0.6 mg IVPUSH Q4H PRN; Protocol PRN Reason: Breakthrough Pain Last Admin: 06/05/22 11:59 Dose: 0.6 mg Piperacillin Sod/Tazobactam (Sod 3.375 gm/ Sodium Chloride) 50 mls @ 100 mls/hr IV Q6H [facility] Last Infusion: 06/05/22 12:39 Dose: Infused Sodium Chloride (Ns) 1,000 mls @ 100 mls/hr IVCONT .Q10H [facility] Last Admin: 06/05/22 02:22 Dose: 100 mls/hr Vancomycin HCl 1,500 mg/ (Sodium Chloride) 500 mls @ 333.333 mls/hr IV Q12H [facility] Last Infusion: 06/05/22 12:39 Dose: Infused Lorazepam (Lorazepam 1 Mg Tablet) 1 mg PO Q4H PRN PRN Reason: Breakthrough alcohol withdrawa Stop: 06/08/22 23:13 Last Admin: 06/05/22 12:01 Dose: 1 mg Melatonin (Melatonin 3 Mg Tablet) 6 mg PO BEDTIME PRN PRN Reason: Insomnia Last Admin: 06/05/22 00:29 Dose: 6 mg Multivitamins/Vitamin C (Multivitamin Tablet) 1 tab PO DAILY [facility] Stop: 06/08/22 08:59 Last Admin: 06/05/22 08:18 Dose: 1 tab Pharmacy Consult (Consult Rx Vancomycin Dosing) 1 each MISCELLANE DAILY PRN PRN Reason: Consult order Senna (Sennosides 8.6 Mg Tablet) 17.2 mg PO BEDTIME PRN PRN Reason: Constipation Last Admin: 06/05/22 10:06 Dose: 17.2 mg Sodium Chloride (0.9 % Sodium Chloride Flush 3 Ml Syringe) 3 ml IVFLUSH QSHIFT [facility] Last Admin: 06/05/22 08:19 Dose: 3 ml Thiamine HCl (Thiamine Hcl 100 Mg Tablet) 100 mg PO DAILY [facility] Stop: 06/08/22 08:59 Last Admin: 06/05/22 08:19 Dose: 100 mg Home Medications Medication Instructions Recorded Confirmed Last Taken Type ibuprofen 200 mg tablet 400 mg PO Q6H PRN Pain 06/05/22 06/05/22 Unknown History Physical Exam Vital Signs: Vital Signs: Last Vital Signs Temp 98.4 F 06/05/22 11:44 Pulse 72 06/05/22 11:44 Resp 19 06/05/22 11:44 BP 169/83 H 06/05/22 11:44 Pulse Ox 97 06/05/22 11:44 O2 Del Method 06/05/22 11:44 BMI result Body Mass Index 23.7 Const: General: cooperative, healthy appearing and comfortable Orientation/consciousness: oriented to person, oriented to place and oriented to time HEENT: Head: Yes normal to inspection Neck: Neck: Yes normal visual inspection Carotids: no bruits Chest: Chest palpation & inspection: normal inspection of the chest Resp: Effort & Inspection: normal respiratory effort and able to speak in complete sentences Auscultation: clear to auscultation bilaterally, no crackles, no rales, no rhonchi and no wheezes Cardio: Rate: regular rate Rhythm: regular rhythm Heart sounds: S1 normal heart sound present and S2 normal heart sound present Bruits: no carotid bruits Peripheral pulses: Peripheral pulses 2+ throughout GI: Inspection: Yes normal to inspection Skin: Other: Ulcer on the dorsum of right 3rd toe Wounds: wounds noted ( see above) Hair: normal Neuro: General: oriented to person, oriented to place and oriented to time Cranial nerves: Yes CN's II-XII intact bilaterally and Yes Normal hearing present Cognition (Neuro): normal cognition Motor exam (neuro): 5/5 motor strength present throughout Extrem: Other: venous exam: No significant superficial varicosities or spider telangiectasias, minimal edema General: No clubbing, No cyanosis and No edema Psych: Appearance: grossly normal Mental Status: mental status grossly normal Speech and movement: Normal speech and movement present Results Labs Result diagrams: 06/05/22 03:24 06/05/22 03:24 Labs: Abnormal lab results 06/04/22 06/04/22 06/05/22 Range/Units 21:11 21:12 00:31 RBC 3.93 L (4.60-5.80) X10*6/uL Hgb 13.6 L (14.0-18.0) g/dl Hct 38.7 L (42.0-52.0) % MCV 98.5 H (80.0-98.0) fL MCH 34.6 H (27.0-33.0) pg MPV 8.1 L (9.4-12.4) fL Neut % (Auto) 42.9 L (45-73) % Lymph % (Auto) 50.2 H (20-40) % Absolute Neuts (auto) (2.0-8.3) x10*3/uL Sodium 148 H (135-145) mmol/L Potassium 3.0 L (3.3-5.1) mmol/L Carbon Dioxide 31 H (22-29) mmol/L BUN 7 L (9-16) mg/dL Lactic Acid 2.2 H* (0.5-2.0) mmol/L Calcium (8.4-10.2) mg/dL AST 55 H (5-37) U/L ALT 42 H (0-40) U/L Alkaline Phosphatase 153 H (39-117) U/L Ethyl Alcohol 374 H* mg/dL 06/05/22 06/05/22 Range/Units 03:24 03:24 RBC 3.49 L (4.60-5.80) X10*6/uL Hgb 12.2 L (14.0-18.0) g/dl Hct 34.4 L (42.0-52.0) % MCV 98.6 H (80.0-98.0) fL MCH 35.0 H (27.0-33.0) pg MPV 8.2 L (9.4-12.4) fL Neut % (Auto) 37.2 L (45-73) % Lymph % (Auto) 50.1 H (20-40) % Absolute Neuts (auto) 1.8 L (2.0-8.3) x10*3/uL Sodium (135-145) mmol/L Potassium 2.8 L (3.3-5.1) mmol/L Carbon Dioxide (22-29) mmol/L BUN 8 L (9-16) mg/dL Lactic Acid (0.5-2.0) mmol/L Calcium 8.2 L D (8.4-10.2) mg/dL AST (5-37) U/L ALT (0-40) U/L Alkaline Phosphatase (39-117) U/L Ethyl Alcohol mg/dL Short CBC 06/04/22 06/05/22 Range/Units 21:12 03:24 WBC 8.1 4.9 (4.8-10.8) X10*3/uL Hgb 13.6 L 12.2 L (14.0-18.0) g/dl Hct 38.7 L 34.4 L (42.0-52.0) % Plt Count 230 195 (160-400) X10*3/uL BMP 06/04/22 06/05/22 21:11 03:24 Sodium 148 H 145 Potassium 3.0 L 2.8 L Chloride 104 105 Carbon Dioxide 31 H 28 BUN 7 L 8 L Creatinine 0.70 0.72 Calcium 9.3 8.2 L D Liver Function 06/04/22 Range/Units 21:11 Total Bilirubin 0.6 (0.0-1.0) mg/dL Direct Bilirubin 0.3 (0.0-0.5) mg/dL AST 55 H (5-37) U/L ALT 42 H (0-40) U/L Alkaline Phosphatase 153 H (39-117) U/L Albumin 4.3 (3.5-5.0) g/dL All other labs normal. Assessment and Plan (1) Foot ulcer: Status: Acute Plan in short it appears that the patient has a traumatic right foot ulceration. He has palpable pulses despite his smoking history. I did staff genetic counselor edema on smoking cessation. At the current time it is stable from a vascular standpoint. He is a young healthy 42-year-old gentleman and I do think a trial of IV antibiotics would be useful if this is true osteomyelitis. Would confirm this 1st. No active vascular issues at the current time. we will follow him on an as-needed basis. Thank you for allowing us to assist in his care. If there are any questions or concerns please do not hesitate to contact us. Procedures Date of Service Date of Service: 06/05/22
[2022-06-05 13:46] LABS: C Reactive Protein 0.53 mg/dL (< or = 0.50)
[2022-06-05 14:17] LABS: Erythrocyte Sedimentation Rate 11 MM/HR (0-15)
[2022-06-05 16:00] VITALS: BP 176/80; PULSE 63; RESP 18; TEMP 36.6; O2SAT 97
[2022-06-05 20:00] VITALS: BP 145/76; PULSE 55; RESP 18; TEMP 36.9; O2SAT 93
[2022-06-06] VITALS: BP 139/85; PULSE 72; RESP 18; TEMP 37.2; O2SAT 96
[2022-06-06] MEDS: Enoxaparin Sodium 40 MG/0.4 ML SYRINGE SUBCUT (00:15)
[2022-06-06] MEDS: 0.9 % Sodium Chloride 1,000 ML 100 ML IVCONT (01:01)
[2022-06-06] MEDS: Piperacillin Sodium/Tazobactam 3.375 GM in 0.9 % Sodium Chloride 50 ML IV ×2 (01:01→05:53)
[2022-06-06 03:35] VITALS: BP 142/68; PULSE 65; RESP 18; TEMP 37.1; O2SAT 96
[2022-06-06] MEDS: LORazepam 1 MG TABLET PO ×2 (05:55→13:16)
[2022-06-06 07:47] VITALS: BP 147/70; PULSE 53; RESP 16; TEMP 36.9; O2SAT 96
[2022-06-06] MEDS: Famotidine 20 MG TABLET PO (07:57)
[2022-06-06] MEDS: Thiamine HCL 100 MG TABLET PO (07:58)
[2022-06-06] MEDS: Multivitamin TABLET 1 TAB PO (07:58)
[2022-06-06] MEDS: Folic Acid 1 MG TABLET PO (07:58)
--- NOTE | 2022-06-06 09:06 | HO.PM.IMPN ---
Subjective Subjective Date of Service: 06/06/22 Interval History: f/u on osteomylitis of the left foot Interval history: pain in the foot is the same, tolerable Review of Systems no fever, pain in the foot Physical Exam Vital Signs: Vital Signs: Last Vital Signs Temp 98.5 F 06/06/22 07:47 Pulse 53 06/06/22 07:47 Resp 16 06/06/22 07:47 BP 147/70 H 06/06/22 07:47 Pulse Ox 96 06/06/22 07:47 O2 Del Method 06/06/22 07:47 BMI result Body Mass Index 23.7 Objective Data Active Medications Acetaminophen (Acetaminophen 325 Mg Tablet) 650 mg PO Q6H PRN PRN Reason: Pain, Mild (Pain Scale 1-3) Last Admin: 06/05/22 00:28 Dose: 650 mg Documented By: SERA Enoxaparin Sodium (Enoxaparin Sodium 40 Mg/0.4 Ml Syringe) 40 mg SUBCUT Q24H [facility] Last Admin: 06/06/22 00:15 Dose: 40 mg Documented By: JOSÉ Famotidine (Famotidine 20 Mg Tablet) 20 mg PO BID [facility] Last Admin: 06/06/22 07:57 Dose: 20 mg Documented By: SIM Folic Acid (Folic Acid 1 Mg Tablet) 1 mg PO DAILY [facility] Stop: 06/08/22 08:59 Last Admin: 06/06/22 07:58 Dose: 1 mg Documented By: SIM Hydromorphone HCl (Hydromorphone Hcl 1 Mg/Ml Syringe) 0.6 mg IVPUSH Q4H PRN; Protocol PRN Reason: Breakthrough Pain Last Admin: 06/05/22 21:02 Dose: 0.6 mg Documented By: JOSÉ Piperacillin Sod/Tazobactam (Sod 3.375 gm/ Sodium Chloride) 50 mls @ 100 mls/hr IV Q6H [facility] Last Infusion: 06/06/22 06:28 Dose: 0 mls/hr Documented By: JOSÉ Sodium Chloride (Ns) 1,000 mls @ 100 mls/hr IVCONT .Q10H [facility] Last Infusion: 06/06/22 01:15 Dose: 100 mls/hr Documented By: JOSÉ Vancomycin HCl 1,500 mg/ (Sodium Chloride) 500 mls @ 333.333 mls/hr IV Q12H [facility] Last Infusion: 06/06/22 01:01 Dose: 0 mls/hr Documented By: JOSÉ Lorazepam (Lorazepam 1 Mg Tablet) 1 mg PO Q4H PRN PRN Reason: Breakthrough alcohol withdrawa Stop: 06/08/22 23:13 Last Admin: 06/06/22 05:55 Dose: 1 mg Documented By: JOSÉ Melatonin (Melatonin 3 Mg Tablet) 6 mg PO BEDTIME PRN PRN Reason: Insomnia Last Admin: 06/05/22 21:03 Dose: 6 mg Documented By: JOSÉ Multivitamins/Vitamin C (Multivitamin Tablet) 1 tab PO DAILY [facility] Stop: 06/08/22 08:59 Last Admin: 06/06/22 07:58 Dose: 1 tab Documented By: SIM Pharmacy Consult (Consult Rx Vancomycin Dosing) 1 each MISCELLANE DAILY PRN PRN Reason: Consult order Senna (Sennosides 8.6 Mg Tablet) 17.2 mg PO BEDTIME PRN PRN Reason: Constipation Last Admin: 06/05/22 10:06 Dose: 17.2 mg Documented By: SIM Sodium Chloride (0.9 % Sodium Chloride Flush 3 Ml Syringe) 3 ml IVFLUSH QSHIFT [facility] Last Admin: 06/06/22 08:26 Dose: Not Given Documented By: SIM Non-Admin Reason: IV Running Thiamine HCl (Thiamine Hcl 100 Mg Tablet) 100 mg PO DAILY [facility] Stop: 06/08/22 08:59 Last Admin: 06/06/22 07:58 Dose: 100 mg Documented By: SIM Labs CBC & Chem 7: 06/05/22 03:24 06/05/22 03:24 Labs: Laboratory Results - last 24 hr 06/05/22 06/05/22 13:28 13:28 ESR 11 C-Reactive Protein 0.53 H Microbiology Microbiology Results: Microbiology 06/05/22 00:31 Blood Culture - Preliminary Blood - Venous No growth after 24 hours. 06/05/22 00:31 Blood Culture - Preliminary Blood - Venous No growth after 24 hours. Assessment and Plan (1) EtOH dependence: Status: Acute (2) Osteomyelitis: Status: Acute Plan 42-year-old male with no significant past medical history except for alcohol abuse presented to the hospital today with a chief complaint of right foot pain redness and swelling.? Noted to have osteomyelitis/metatarsal fracture.? Admitted for further management.? Right 1st metatarsal osteomyelitis/right 3rd toe and 1st metatarsal head fracture: Pain control Continue IV vancomycin and Zosyn ID and Vascular recommend MRI for confirmation PT/OT eventually Alcohol abuse:? Monitor on CIWA protocol with Ativan.? Thiamine folate and multivitamins.? DVT prophylaxis:? Lovenox Code status:? Full code Need for inaptient: IV Abx for acute osteomyltisis, further testing with MR Quality Stroke Does the patient have a stroke diagnosis?: No VTE Prior VTE?: No VTE Risk Level:: Medical - moderate - high VTE Device Contraindication: Treatment Not Indicated VTE Drug Contraindication: N/A - Med Ordered
[2022-06-06 09:48] LABS: Creatinine Clr Calc Pharmacy 27.5; Estimated Glomerular Filt Rate 17
[2022-06-06 11:12] LABS: Vancomycin Trough 61.6 mcg/mL (10.0-20.0)
[2022-06-06 13:07] LABS: Vancomycin Random 57.1 mcg/mL (15-20)
--- NOTE | 2022-06-06 13:26 | HE.PHANOTE ---
RE Vancomycin: Patient serum creatinine increased to 3.87 (06/06 @0906) from 0.70 and 0.72 on 06/04 and 06/05 respectively. The trough was 61.6 (suspected was to be 16.1). Patient was given a proper load @ 24.49 mg/kg and subsequent 18.37 mg/kg Q12H dosing. Administration and lab draws were timed appropriately. A repeat trough was put in by the provider 2.5 hours later and returned @ 57.1. Patient's ETOH was very elevated and there IS literature that supports GERSON in the setting of senior living ETOH abuse. Most certainly zosyn and vancomycin combination provides a synergistic effect in terms of kidney insult. I will time another random level 24 hours later @1100 on 06/07. We hope that the level will continue to drop by 1.8/hr. Thanks Master
--- NOTE | 2022-06-06 13:41 | PM.DS ---
DS: Providers Provider Date of Service: 06/06/22 Date of admission: 06/04/22 23:12 Primary care physician: Unknown Physician Consults: 06/04/22 23:10 Consult to Infectious Diseases Routine Consulting Provider: Esha Fox Reason for consultation: osteomyelitis Consult to Vascular Surgery Routine Consulting Provider: Misbah Jhaveri Reason for consultation: foot wound/osteomyelitis/metatarsal fracture 06/06/22 11:17 Consult to Nephrology Routine Consulting Provider: Robbi Carroll Reason for consultation: GERSON Has provider been notified: No DS: Diagnosis Discharge Diagnosis (1) EtOH dependence: Status: Acute (2) Osteomyelitis: Status: Acute DS: Summary Hospital Course Hospital Course: Patient was being treated for presumed osteomylitis of the toe on IV vancomycin and had MRI of the foot to confirm diagnosis today. It became apparent that his vancomycin level was in toxici range at 60 and serum Creatinine has jumped to 3.87 from 0.7 the previous day.. with concern for Vancomycin related ATN causing renal failure. Nephrology was asked to see and was in MRI when Dr. Rodríguez attempted to see him. Unfortuntely he is asking to leave AMA citing he has stuff to do, and cannot stay in the hospital any longer.. His was at the bed side and could not convince him to change his mind. When asked if there is anything we can do to change his mind he says NO..I stressed the importance that his kidney needs to be closely monitored with possible further testing and advised from nephrology. It was made known to him that leaving AMA, he's risk further injury to his kidney and can lead to other complications and even and his response was I will take a chance I did provide him with number to call Dr. James, and [facility] office for follow up tomorrow and will let Dr. Rodríguez know, the entire conversation was witnessed by LEANA Lafleur and Harshal (orientee) and it was ascertain that patient understood the coversation and was able to repeat back in his own word and procced to sign AMA Final diagnosis: Osteomylitis GERSON likely ATN hypernatremia Hypokalemia Time Spent with Patient Time attestation: Total time spent providing and/or coordinating discharge services: Discharge coordination time: Greater than 30 minutes Quality: Safe Use of Opioids Does Pt have an Active Cancer Diagnosis on the Problem List?: No Quality: Stroke Does the patient have a stroke diagnosis?: No Physical Exam Vital Signs: Vital Signs: Last Vital Signs Temp 98.5 F 06/06/22 07:47 Pulse 53 06/06/22 07:47 Resp 16 06/06/22 07:47 BP 147/70 H 06/06/22 07:47 Pulse Ox 96 06/06/22 07:47 O2 Del Method 06/06/22 07:47 BMI result Body Mass Index 23.7 DS: Data Data Completed and Pending Labs on day of discharge: Laboratory Results - last 24 hr 06/05/22 06/05/22 06/06/22 13:28 13:28 09:06 ESR 11 Creatinine Estim Creat Clear Calc Estimated GFR C-Reactive Protein 0.53 H Vancomycin Trough 61.6 H* Random Vancomycin 06/06/22 06/06/22 09:06 11:27 ESR Creatinine 3.87 H Estim Creat Clear Calc 27.5 Estimated GFR 17 C-Reactive Protein Vancomycin Trough Random Vancomycin 57.1 H* Preliminary micro results at discharge 06/05/22 00:31 Blood Culture - Preliminary Blood - Venous No growth after 24 hours. 06/05/22 00:31 Blood Culture - Preliminary Blood - Venous No growth after 24 hours. Discharge Plan Discharge Anticipated Discharge Date/Time: 06/06/22 13:29 Patient Disposition: Left Against Medical Advice Discharge Diagnosis: GERSON, osteomylitis, hypokalemia, Hypernatremia Referrals: Physician,Unknown J [Primary Care Provider] - 1 Week Discharge Medications: No Action ibuprofen 200 mg Tablet 400 mg PO Q6H PRN (Reason: Pain) Discharge Orders: Discharge Order (Routine); Ordered 06/06/22 Ordered By: Collins Anne Diet: Advance to usual diet Activity on Discharge: As tolerated Care Plan Goals: Full work up and resolution of renal failure Health Concerns: Osteomylitis, acute renal failure Plan of Treatment: Left against medical advised, I told him and his at the bedside that it was imperative that he follows up with Nephrology no later than tomorrow. Dr. James's office number give to him Assessment: as above Discharge Date/Time: 06/06/22 13:51
--- NOTE | 2022-06-06 13:48 | MHC.CM.PN ---
PATIENT LEFT AMA [facility] REFERRAL NOTIFIED PATIENT HAS NOT BEEN ACTIVE WITH HIS PCP IN A LONG TIME AND WOULD HAVE BEEN UNABLE TO DC FROM [facility] [place] WITH THESE SERVICES
[2022-06-06 13:50] LABS: Anion Gap 15 (12-20); Carbon Dioxide 23 mmol/L (22-29); Chloride 102 mmol/L (96-108); Potassium 3.4 mmol/L (3.3-5.1); Sodium 137 mmol/L (135-145)
== END 2022-06-06 13:51 | disposition left against medical advice (07) | DRG 344 ==
LOC: HO.ED 23:26 → HO.EDOVER 23:31 → HO.S3 23:43
PROVIDERS: Internal Medicine; Physician Assistant Medical; Admitting Provider Hospitalist; Emergency Provider Internal Medicine; Visit Provider Internal Medicine
DX: M86.9 Osteomyelitis, unspecified (principal); N17.9 Acute kidney failure, unspecified; E87.0 Hyperosmolality and hypernatremia; E87.6 Hypokalemia; L97.519 Non-pressure chronic ulcer of other part of right foot with unspecified severity; Z20.822 Contact with and (suspected) exposure to COVID-19; F10.20 Alcohol dependence, uncomplicated; F17.210 Nicotine dependence, cigarettes, uncomplicated; Z71.6 Tobacco abuse counseling; Z91.030 Bee allergy status
CPT/HCPCS: 36415; 73620; 73720; 80048; 80051; 80053; 80202; 82077; 82248; 82565; 83605; 83690; 83735; 85025; 85652; 86140; 87040; 87635; 93005; 99285; A9585; J1170; J1650; J2543; J3370